=== PATIENT | male | born 1955 | race Two or more races ===

== ENCOUNTER 2019-03-03 23:25 | Emergency (ER) | payer OTHER ==
[~2019-03-03] VITALS: Ht 175.3 cm; Wt 99.8 kg
[~2019-03-03 23:25] MED LIST: AMOX1TAB12 PO; ATORVASTATIN CA20 MG; CLEOCIN HCL300 MG PO; KETO10TA2 PO; LOSARTAN POTASS50 MG; METFORMIN HCL500 MG; ORPH100T PO
[2019-03-04] MEDS ORDERED: MUCINEX1200 MG PO (09:51)
[2019-03-04] MEDS ORDERED: FLONASE16 GM NASAL (09:51)
[2019-03-04] MEDS ORDERED: ALAVERT D-12 A1 EACH PO (09:51)
[2019-03-04] MEDS ORDERED: CEFDINIR300 MG PO (09:51)
== END 2019-03-04 09:32 | disposition home or self-care (01) ==
LOC: ER 23:25
DX: J40 Bronchitis, not specified as acute or chronic (principal); J11.1 Influenza due to unidentified influenza virus with other respiratory manifestations; J32.8 Other chronic sinusitis

== ENCOUNTER 2020-10-30 10:34 | Emergency (ER) | payer OTHER ==
[~2020-10-30] VITALS: Ht 175.3 cm; Wt 96.2 kg
[~2020-10-30 10:34] MED LIST changes: +ALAVERT D-12 A1 EACH PO; +CEFDINIR300 MG PO; +FLONASE16 GM NASAL; +MUCINEX1200 MG PO
== END 2020-10-30 13:16 | disposition home or self-care (01) ==
LOC: ER 10:34
DX: R53.81 Other malaise (principal); Z03.818 Encounter for observation for suspected exposure to other biological agents ruled out

== ENCOUNTER 2022-10-23 21:40 | Emergency (ER) | payer OTHER ==
[~2022-10-23] VITALS: Ht 175.3 cm; Wt 96.2 kg
[2022-10-23] MEDS ORDERED: FLUCONAZOLE200 MG PO (22:27)
[2022-10-23] MEDS ORDERED: MICONAZOLE NITR15 GM TOP (22:27)
== END 2022-10-23 22:46 | disposition home or self-care (01) ==
LOC: ER 21:40
DX: I86.1 Scrotal varices (principal); B37.42 Candidal balanitis; E11.9 Type 2 diabetes mellitus without complications; Z79.84 Long term (current) use of oral hypoglycemic drugs; I10 Essential (primary) hypertension

== ENCOUNTER 2022-11-06 10:11 | Emergency (ER) | payer OTHER ==
[~2022-11-06] VITALS: Ht 175.3 cm; Wt 96.2 kg
[~2022-11-06 10:11] MED LIST changes: +FLUCONAZOLE200 MG PO; +MICONAZOLE NITR15 GM TOP
== END 2022-11-06 15:57 | disposition home or self-care (01) ==
LOC: ER 10:11
DX: R30.0 Dysuria (principal); Z20.822 Contact with and (suspected) exposure to COVID-19

== ENCOUNTER → 2024-12-19 | Emergency (ER) | payer OTHER ==
[~2024-12-19] MED LIST changes: +CEFTRIAXONE SODIUM 1,000 MG VIAL ONE; +KETOROLAC TROMETHAMINE 30 MG VIAL ONE; +LIDOCAINE HCL 2% JELLY 6 ML SYRINGE MM ONE; +LOSARTAN POTAS100 MG PO; +METFORMIN HCL500 M4 PO; +POVIDONE-IODINE 118 ML BOTT TOP ONE
== END | disposition left against medical advice (07) ==
LOC: ER 11:43
DX: Z53.21 Procedure and treatment not carried out due to patient leaving prior to being seen by health care provider (principal)

== ENCOUNTER 2024-12-20 06:19 | Emergency (ER) | payer OTHER ==
[~2024-12-20] VITALS: Ht 175.3 cm; Wt 85.7 kg
[~2024-12-20 06:19] MED LIST changes: -CEFTRIAXONE SODIUM 1,000 MG VIAL ONE; -KETOROLAC TROMETHAMINE 30 MG VIAL ONE; -LIDOCAINE HCL 2% JELLY 6 ML SYRINGE MM ONE; -LOSARTAN POTAS100 MG PO; -METFORMIN HCL500 M4 PO; -POVIDONE-IODINE 118 ML BOTT TOP ONE
[2024-12-20] MEDS ORDERED: LOSARTAN POTAS100 MG PO (06:31)
[2024-12-20] MEDS ORDERED: METFORMIN HCL500 M4 PO (06:32)
[2024-12-20] MEDS ORDERED: KETOROLAC TROMETHAMINE 30 MG VIAL IM STA (08:32)
[2024-12-20] MEDS ORDERED: CEFTRIAXONE SODIUM 1,000 MG VIAL IM STA (08:33)
== END 2024-12-20 08:48 | disposition home or self-care (01) ==
LOC: ER 06:21
DX: R59.1 Generalized enlarged lymph nodes (principal)
CPT/HCPCS: 96372; 99282; J0696; J1885